=== PATIENT | female | born 1965 | race Caucasian/White ===

== ENCOUNTER 2020-03-23 22:03 | Emergency (ER) | payer BC ==
[~2020-03-23] VITALS: Ht 170.2 cm; Wt 77.1 kg
[2020-03-23 22:07] VITALS: Ht 170.2 cm; Wt 77.1 kg
[2020-03-23] MEDS ORDERED: LOPRESSOR50 M1 PO (22:49)
[2020-03-23] MEDS ORDERED: PARLODEL2.5 MG PO (22:49)
[2020-03-23] MEDS ORDERED: NATURE'S BLEND F1 MG PO (22:50)
[2020-03-23] MEDS ORDERED: MICROZIDE12.5 MG PO (22:50)
[2020-03-23] MEDS ORDERED: COZAAR50 M1 PO (22:50)
[2020-03-23] MEDS ORDERED: TRAZODONE50 M1 PO (22:50)
[2020-03-23] MEDS ORDERED: KEPPRA250 M1 PO (22:50)
[2020-03-23] MEDS ORDERED: XAN5 PO (22:51)
[2020-03-23] MEDS ORDERED: ELIQUIS2.5 MG PO (22:51)
[2020-03-23] MEDS ORDERED: ESCITALOPRAM OX10 MG PO (22:52)
[2020-03-23] MEDS ORDERED: BACLOFEN5 MG PO (22:52)
[2020-03-23 23:33] LABS: CARBON DIOXIDE 27.3 mmol/L (21-32); CREATININE SERUM 1.1 mg/dL (0.6-1.0); POTASSIUM SERUM 3.6 mmol/L (3.5-5.1)
[2020-03-23 23:38] LABS: BILIRUBIN TOTAL 0.32 mg/dL (0.20-1.00); TOTAL PROTEIN, SERUM 6.9 g/dL (6.4-8.2)
[2020-03-23 23:59] LABS: BASOPHIL % 0.3 % (0-2); PLATELET COUNT 264 x10^3mcL (130-400); RED CELL DISTRIBUTION WIDTH 12.7 % (11.5-14.5)
[2020-03-24 00:11] VITALS: BP 126/68
== END 2020-03-24 00:11 | disposition home or self-care (01) ==
LOC: ED 22:03
PROVIDERS: Emergency Medicine
DX: G40.909 Epilepsy, unspecified, not intractable, without status epilepticus (principal); I10 Essential (primary) hypertension; Z98.890 Other specified postprocedural states
CPT/HCPCS: J1953; Q0092